=== PATIENT | female | born 1960 | race Caucasian/White ===

== ENCOUNTER 2016-06-29 18:04 | Emergency (ER) | payer OTHER ==
[~2016-06-29] VITALS: Ht 162.6 cm; Wt 65.3 kg
[~2016-06-29 18:04] MED LIST: ASPIR 8181 M1 PO; COMBIVENT RESPIM4 GM IH; IBUPROFEN800 MG PO; LOPRESSOR25 MG PO; LOSARTAN POTASS50 MG PO; MECLIZINE HCL25 MG PO; MULTI-DAY VITA1 EACH PO; MULTIVITAMIN1 EAC1 PO; NICODERM CQ1 EAC1 TD; NICOTINE PATCH1 EAC2 TD; OMEPRAZOLE20 MG PO; PRAVACHOL20 MG PO; PRILOSEC20 MG PO; PROTONIX40 MG PO; TRAMADOL HCL50 MG PO; TYLENOL EXTRA500 MG PO; VICODIN,LORT1 TABLET PO; Vicodin,Lortab 5/500 PO; ZOFRAN4 MG PO
[2016-06-29 20:31] LABS: HEMATOCRIT 43.6 % (36.0-46.0); MCH 30.4 PG (29.0-34.0); MCHC 34.6 G/DL (30.0-36.0); MCV 87.9 FL (83-99); MEAN PLAT.VOLUME 9.4 uM^3 (9.5-12.4); PLATELET COUNT 180 K/uL (156-360); RBC DIS.WIDTH-CV 13.7 % (11.8-14.6); RBC DIS.WIDTH-SD 43.6 % (39-53); RED BLOOD COUNT 4.96 M/uL (3.80-5.20); WHITE BLOOD COUNT 10.6 K/uL (4.1-10.2)
[2016-06-29 20:52] LABS: TROP-I INTERPRETATION NEGATIVE; TROPONIN-I < 0.01 ng/mL (0.0-0.30)
[2016-06-29 21:37] VITALS: BP 160/94
== END 2016-06-29 21:50 | disposition home or self-care (01) ==
LOC: EME 18:04
PROVIDERS: Emergency Medicine
DX: I10 Essential (primary) hypertension (principal); J44.9 Chronic obstructive pulmonary disease, unspecified; K21.9 Gastro-esophageal reflux disease without esophagitis; Z85.41 Personal history of malignant neoplasm of cervix uteri; Z96.652 Presence of left artificial knee joint; Z79.82 Long term (current) use of aspirin; F17.200 Nicotine dependence, unspecified, uncomplicated
CPT/HCPCS: 70450; 84484; 85027; 93005; 99281; 99284

== ENCOUNTER 2017-02-21 13:07 | Emergency (ER) | payer OTHER ==
[~2017-02-21] VITALS: Ht 162.6 cm; Wt 62.1 kg
[2017-02-21] MEDS ORDERED: LOPRESSOR25 MG PO (13:25)
[2017-02-21] MEDS ORDERED: VALSARTAN80 MG PO (13:27)
[2017-02-21 14:52] LABS: BASOPHIL COUNT 0.1 K/uL (0-0.1); EOSINOPHIL (%) 6.3 % (0-5); EOSINOPHIL COUNT 0.6 K/uL (0-0.3); HEMATOCRIT 43.8 % (36.0-46.0); IMMATURE GRANULOCYTE (%) 0.5 % (0.0-0.7); INSTRUMENT ABS NEUTROPHIL CT 4.9 K/uL; LYMPHOCYTE COUNT 2.5 K/uL (1.0-2.8); MCH 29.3 PG (29.0-34.0); MCHC 33.3 G/DL (30.0-36.0); MEAN PLAT.VOLUME 9.5 uM^3 (9.5-12.4); MONOCYTE (%) 8.5 % (3-12); MONOCYTE COUNT 0.8 K/uL (0-0.8); NEUTROPHIL (%) 55.8 % (45-76); NEUTROPHIL COUNT 4.9 K/uL (1.8-6.4); PLATELET COUNT 181 K/uL (156-360); RBC DIS.WIDTH-CV 13.3 % (11.8-14.6); RBC DIS.WIDTH-SD 42.8 % (39-53); RED BLOOD COUNT 4.98 M/uL (3.80-5.20); WHITE BLOOD COUNT 8.8 K/uL (4.1-10.2)
[2017-02-21 15:01] LABS: CHLORIDE 109 mEq/L (99-109); POTASSIUM 4.1 mEq/L (3.7-5.4); SODIUM 140 mEq/L (136-147)
[2017-02-21 15:03] LABS: GLUCOSE 98 mg/dL (70-99)
[2017-02-21 15:04] LABS: ANION GAP 10 MEQ/L (2-14)
[2017-02-21 15:07] LABS: GFR ESTIMATE (CALCULATED) > 59 mL/min/; UREA NITROGEN (BUN) 17 mg/dL (9-23)
[2017-02-21 15:11] LABS: PROTHROMBIN TIME 10.5 SEC (10.2-12.9)
[2017-02-21 15:13] LABS: D-DIMER ELISA < 150.00 ng/mLDDU (<230); TROP-I INTERPRETATION NEGATIVE; TROPONIN-I < 0.01 ng/mL (0.0-0.30)
[2017-02-21 15:14] LABS: PTT 35.2 SEC (25-37)
[2017-02-21 17:50] LABS: TROP-I INTERPRETATION NEGATIVE; TROPONIN-I < 0.01 ng/mL (0.0-0.30)
[2017-02-21 18:10] VITALS: BP 115/66
== END 2017-02-21 18:12 | disposition home or self-care (01) ==
LOC: EME 13:07
PROVIDERS: Emergency Medicine
DX: R07.9 Chest pain, unspecified (principal); I10 Essential (primary) hypertension; F17.200 Nicotine dependence, unspecified, uncomplicated; J44.9 Chronic obstructive pulmonary disease, unspecified; K21.9 Gastro-esophageal reflux disease without esophagitis; Z85.41 Personal history of malignant neoplasm of cervix uteri; Z96.652 Presence of left artificial knee joint; Z88.8 Allergy status to other drugs, medicaments and biological substances
CPT/HCPCS: 71010; 80048; 84484; 85025; 85379; 85610; 85730; 93005; 99281; 99285

== ENCOUNTER 2017-09-09 21:15 | Observation (INO) | payer OTHER ==
[~2017-09-09] VITALS: Ht 162.6 cm; Wt 62.6 kg
[~2017-09-09 21:15] MED LIST changes: +METOPROLOL SUCC25 MG PO; +VALSARTAN80 MG PO
[2017-09-09 22:16] LABS: BASOPHIL (%) 0.8 % (0-1); BASOPHIL COUNT 0.1 K/uL (0-0.1); EOSINOPHIL (%) 7.5 % (0-5); EOSINOPHIL COUNT 0.8 K/uL (0-0.3); HEMATOCRIT 40.5 % (36.0-46.0); IMMATURE GRANULOCYTE (%) 0.3 % (0.0-0.7); LYMPHOCYTE (%) 30.2 % (15-42); LYMPHOCYTE COUNT 3.2 K/uL (1.0-2.8); MCH 30.9 PG (29.0-34.0); MCHC 34.6 G/DL (30.0-36.0); MCV 89.4 FL (83-99); MONOCYTE (%) 7.6 % (3-12); MONOCYTE COUNT 0.8 K/uL (0-0.8); NEUTROPHIL (%) 53.6 % (45-76); NEUTROPHIL COUNT 5.7 K/uL (1.8-6.4); PLATELET COUNT 197 K/uL (156-360); RBC DIS.WIDTH-SD 42.8 % (39-53); RED BLOOD COUNT 4.53 M/uL (3.80-5.20); WHITE BLOOD COUNT 10.6 K/uL (4.1-10.2)
[2017-09-09 22:28] LABS: ALBUMIN 4.4 g/dL (3.2-4.8); CHLORIDE 106 mEq/L (99-109); POTASSIUM 4.1 mEq/L (3.7-5.4); SODIUM 141 mEq/L (136-147)
[2017-09-09 22:30] LABS: GLUCOSE 101 mg/dL (70-99); TOTAL PROTEIN 6.8 g/dL (6.4-8.3)
[2017-09-09 22:32] LABS: TOTAL BILIRUBIN 0.3 mg/dL (0.0-1.0)
[2017-09-09 22:34] LABS: ALKALINE PHOSPHATASE 107 IU/L (3-129); CREATININE 0.7 mg/dL (0.6-1.3); GFR ESTIMATE (CALCULATED) > 59 mL/min/
[2017-09-09 22:35] LABS: UREA NITROGEN (BUN) 22 mg/dL (9-23)
[2017-09-09 22:36] LABS: AST (GOT) 14 IU/L (2-34); DIRECT BILIRUBIN 0.1 mg/dL (0.0-0.3)
[2017-09-09 22:37] LABS: ALT (GPT) 14 IU/L (3-49); LIPASE 16 U/L (1.0-51.0)
[2017-09-09 22:45] LABS: APPEARANCE CLEAR ((CLEAR)); BILIRUBIN NEGATIVE; BLOOD SMALL; COLOR STRAW ((YELLOW)); GLUCOSE (STRIP) NEGATIVE; KETONES NEGATIVE; LEUKOCYTES NEGATIVE; NITRITE NEGATIVE; PROTEIN (STRIP) NEGATIVE; SPECIFIC GRAVITY 1.006 (1.000-1.030); UROBILINOGEN 0.2 MG/DL (0.2-1.0)
[2017-09-09 22:48] LABS: BACTERIA RARE /HPF; EPITHELIAL CELLS RARE /HPF; MUCUS NONE SEEN /LPF; RED BLOOD CELLS 0-5 /HPF (0-5); WHITE BLOOD CELLS 0-5 /HPF (0-5)
[2017-09-10] MEDS ORDERED: ATORVASTATIN CA20 MG PO (01:02)
[2017-09-10 02:41] VITALS: BP 168/80
[2017-09-10 05:10] LABS: HEMATOCRIT 38.6 % (36.0-46.0); HEMOGLOBIN 12.8 G/DL (11.9-15.5); MCV 89.6 FL (83-99)
[2017-09-10 08:11] VITALS: BP 137/65
[2017-09-10 11:42] VITALS: BP 153/70
[2017-09-10 12:37] LABS: HEMATOCRIT 39.9 % (36.0-46.0); HEMOGLOBIN 13.6 G/DL (11.9-15.5); MCV 90.3 FL (83-99)
[2017-09-10 16:01] LABS: STOOL OCCULT BLD 1ST SPECIMEN NEGATIVE
[2017-09-10 16:38] LABS: STOOL OCCULT BLD 1ST SPECIMEN NEGATIVE
[2017-09-10 16:50] VITALS: BP 136/63
[2017-09-10 17:56] VITALS: BP 174/77
[2017-09-10 19:35] LABS: HEMATOCRIT 37.7 % (36.0-46.0); HEMOGLOBIN 12.6 G/DL (11.9-15.5); MCV 91.1 FL (83-99)
[2017-09-10 23:33] VITALS: BP 164/74
[2017-09-11 03:51] VITALS: BP 119/53
[2017-09-11 07:58] VITALS: BP 116/60
[2017-09-11] MEDS ORDERED: OMEPRAZOLE40 M1 PO (10:34)
[2017-09-11 11:45] VITALS: BP 121/69
== END 2017-09-11 13:46 | disposition home or self-care (01) ==
LOC: EME 21:15 → 4SOUTH 09-10 01:16 → EDOF 09-10 01:16 → ENRESERV 09-10 01:21 → 4SOUTH 09-10 02:29 → ENPENDDIS 09-11 → 4SOUTH 09-11 13:46
PROVIDERS: Physician Assistant; Physician Assistant Medical
DX: K29.70 Gastritis, unspecified, without bleeding (principal); K29.80 Duodenitis without bleeding; I16.0 Hypertensive urgency; I10 Essential (primary) hypertension; I73.9 Peripheral vascular disease, unspecified; H81.09 Meniere's disease, unspecified ear; I35.0 Nonrheumatic aortic (valve) stenosis; K21.9 Gastro-esophageal reflux disease without esophagitis; I70.0 Atherosclerosis of aorta; Z85.41 Personal history of malignant neoplasm of cervix uteri; M19.90 Unspecified osteoarthritis, unspecified site; Z72.0 Tobacco use; J44.9 Chronic obstructive pulmonary disease, unspecified; K59.00 Constipation, unspecified; Z88.5 Allergy status to narcotic agent; Z91.040 Latex allergy status; I65.29 Occlusion and stenosis of unspecified carotid artery; R20.0 Anesthesia of skin; H91.90 Unspecified hearing loss, unspecified ear; Z82.49 Family history of ischemic heart disease and other diseases of the circulatory system; Z82.5 Family history of asthma and other chronic lower respiratory diseases; Z79.82 Long term (current) use of aspirin
CPT/HCPCS: 74177; 76705; 80048; 80076; 81003; 82272; 83605; 83690; 85014; 85018; 85025; 88305; 88342 TC; 93005; 99281; 99285; C9113; G0378; J1885; J2405; J3010; S0028